=== PATIENT | female | born 1930 | race Caucasian/White ===

== ENCOUNTER 2018-08-01 10:06 | Emergency (ER) | payer BC ==
[2018-08-01 10:27] VITALS: BP 136/66; PULSE 61; TEMP 97.9; BMI 24.3
--- NOTE | 2018-08-01 10:28 | PDOC ---
Attending Attestation - Resident Resident Name: Tata Hayes - ED Attending Attestation I have performed the following: I have examined & evaluated the patient, The case was reviewed & discussed with the resident, I agree w/resident's findings & plan, Exceptions are as noted - HPI HPI: 08/01/18 16:19 Reviewed Residents HPI - Physicial Exam PE: 08/01/18 16:19 Reviewed Residents PE - Medical Decision Making 08/01/18 17:44 Elderly woman presents to the ED with mechanical fall injury to right knee and right ribs with elbow skin tears. Tetanus updated no acute rib fractures noted no pneumothorax or hemothorax noted Patient with extensor mechanism intact right lower extremity suggestive of incomplete patellar fracture Case discussed with orthopedic patient placed in knee immobilizer given crutches will follow up with orthopedics this week. Findings, the need for follow-up and strict return instructions discussed patient.
--- NOTE | 2018-08-01 10:57 | PDOC ---
History of Present Illness - General Chief Complaint: Injury Stated Complaint: FALL Time Seen by Provider: 08/01/18 10:22 History Source: Patient, Family Exam Limitations: No Limitations - History of Present Illness Initial Comments: 08/01/18 10:57 87YOF who p/w right knee, right elbow, and right rib pain since suffering a GLF last night which she describes as mechanical. She recalls she was walking in her living room, which was poorly lit, when she tripped over her dog and landed on her right side on hardwood julianne. She denies hitting her head, hurting her neck, losing consciousness, or being stuck on the ground for any extended period of time (states 5 min). She initially was able to ambulate with heavy dependence on crutches (d/t worsened right knee pain with weight bearing) but has been unable to do so this morning. Past History - Past Medical History Allergies/Adverse Reactions: Allergies Allergy/AdvReac Type Severity Reaction Status Date / Time No Known Allergies Allergy Verified 08/01/18 10:18 Home Medications: Ambulatory Orders Enalapril Maleate [Vasotec -] 2.5 mg PO DAILY 06/29/12 metFORMIN HCL [Glucophage] 1,000 mg PO BID 06/29/12 Aspirin Coated [Ecotrin -] 81 mg PO DAILY 08/22/14 Metoprolol Tartrate [Lopressor -] 12.5 mg PO DAILY 08/22/14 Atorvastatin Ca [Lipitor] 10 mg PO DAILY 08/01/18 Cardiac Disorders: Yes (MVP) Diabetes: Yes (NIDDM) GI Disorders: Yes (DIVERTICULOSIS, GERD, HH) HTN: Yes Hypercholesterolemia: Yes - Surgical History Appendectomy: Yes (46 years old) - Suicide/Smoking/Psychosocial Hx Smoking Status: No Smoking History: Unknown if ever smoked Have you smoked in the past 12 months: No Number of Cigarettes Smoked Daily: 0 Hx Alcohol Use: No Drug/Substance Use Hx: No Substance Use Type: None Review of Systems - Review of Systems Able to Perform ROS?: Yes Comments:: 08/01/18 11:10 GEN: no fever, chills, malaise, generalized weakness, or weight change HEENT: no ear pain, sore throat, vision change, or eye pain CV: no chest pain, palpitations, lightheadedness, syncope, or edema RESP: no cough, wheezing, or SOB GI: no abdominal pain, nausea, vomiting, diarrhea, constipation, or white/black/ bloody stool : no dysuria, hematuria, incontinence, retention, bleeding, or discharge MSK: right elbow skin tear, right knee trauma/pain/swelling, right rib pain NEURO: no headache, seizure, vertigo, numbness, tingling, or focal weakness PSYCH: no substance use, no behavior change SKIN: skin tear, no jaundice, no rash ROS otherwise negative except as noted in HPI *Physical Exam - Vital Signs Initial Vital Signs Temp Pulse Resp BP Pulse Ox 97.9 F 61 16 136/66 98 08/01/18 10:17 08/01/18 10:17 08/01/18 10:17 08/01/18 10:17 08/01/18 10:17 - Physical Exam Comments: 08/01/18 11:04 GENERAL: very pleasant elderly female, in good humor, appears younger than stated age, well-appearing, A/Ox4, no distress, answers questions appropriately , family at bedside is supportive HEENT: no outward signs of facial trauma or basilar skull fxr, PERRLA, EOMI, moist mucous membranes NECK/BACK: no midline ttp, no spinal stepoff or deformity, no hematoma, full ROM , neck supple CARDIOVASCULAR: regular rate/rhythm, normal S1S2, no MGR, strong peripheral pulses, capillary refill <2 seconds, extremities wwp, no edema LUNGS/RESPIRATORY: no respiratory distress, CTAB CHEST WALL: right rib mild ttp from midaxillary line to midclavicular line from about rib 3 to 6, no stepoff or obvious deformity, no overlying hematoma GI/ABDOMEN: symmetric [id number], normoactive BS, soft, no ttp, no midline pulsatile masses : no CVA tenderness EXTREMITIES: right knee large effusion with anterior knee small bony prominence possibly representing bony deformity, also tibia appears posteriorly positioned relative to distal femur, no skin tears, patient is able to extend the knee completely and actively against gravity and also against counter-force although this worsens pain, and flex the knee to about 15 degrees with increased stated pain, DP and PT pulses intact as well as motor/sensory intact distally, patient unable to bear weight in the department. Right elbow with overlying skin tear extending for about 5 cm and not appearing amenable to suturing. SKIN: warm and dry, no pallor, no jaundice, no rash, no bruising, no skin breakdown, no cuts, no lesions NEUROLOGICAL: GCS 15, CN II-XII grossly intact, 5/5 strength proximally and distally, no facial droop Medical Decision Making - Medical Decision Making 08/01/18 11:12 Elderly female patient p/w mechanical GLF with subsequent right knee and right rib pain and right elbow skin tears. Initial Vital Signs Temp Pulse Resp BP Pulse Ox 97.9 F 61 16 136/66 98 08/01/18 10:17 08/01/18 10:17 08/01/18 10:17 08/01/18 10:17 08/01/18 10:17 Exam: As noted in Physical Exam section. DDX for knee injury IBNLT: knee fxr/dislocation, ligamentous injury (tear vs rupture), sprain/strain, contusion, unlikely any of the following: hip/pelvis/ femur fxr, hip dislocation, thigh hematoma, compartment syndrome, etc. DDX for rib pain IBNLT: rib fracture, rib contusion, costochondritis, unlikely to be PTX, pulmonary contusion, or other more serious pathology. W/U ordered: XR hip/pelvis/femur/knee CBCD CMP Cardiac Panel Coags T&S UA UCx EKG CXR TX ordered: Boostrix NPO until further notice. The patient is a/o x4, appears very healthy for her age, denies hitting her head or losing consciousness, denies neck pain or headache, denies n/v, denies dizziness/lightheadedness, no outward e/o facial trauma. She is appropriate for observation as opposed to CT imaging. XR Rt Knee: shows patellar fxr, no dislocation or additional bony abnormality. XR right ribs: no obvious fxr. CXR: No PTX or other acute abnormality Reassessment: Patient states she feels well, wants to go home. On re-assessment she remains able to actively extend at the right knee against gravity. Distal neurovascularly intact. Patient is given a knee immobilizer and crutches. Splint check shows maintained NV intact. I have spoken with Dr. Lara' office and the patient has followup scheduled with them. DISCHARGE The Pt has gotten significant relief of symptoms while in the ED. They are appropriate for discharge with close outpatient follow up. The Pt is comfortable with this plan and will follow up with their primary care provider in 1-3 days. Specific return precautions are discussed and they will come back to the ER if necessary. *DC/Admit/Observation/Transfer Diagnosis at time of Disposition: Patella fracture Qualifiers: Encounter type: initial encounter Fracture type: closed Fracture morphology: unspecified fracture morphology Fracture alignment: nondisplaced Laterality: right Qualified Code(s): S82.001A - Unspecified fracture of right patella, initial encounter for closed fracture Skin tear of elbow without complication Qualifiers: Encounter type: initial encounter Laterality: right Qualified Code(s): S51.011A - Laceration without foreign body of right elbow, initial encounter - Discharge Dispostion Disposition: HOME Condition at time of disposition: Good Decision to Admit order: No - Referrals Referrals: Sena Owens MD [Primary Care Provider] - Tesfaye Lara MD [Staff Physician] - - Patient Instructions Additional Instructions: You were seen in the ER for knee pain after a fall, and you have a patella fracture. Please go to the orthopedist's office today at 2:[address] name is [address]. Lara and his address is listed in this paperwork. Wear the knee immobilizer and use crutches in the meantime. If you have any new or worsening symptoms, please come back to the ER at any time (24 hours a day). If you are having severe or life threatening symptoms, or symptoms that make it unsafe to drive or have someone drive you, please call 911. - Post Discharge Activity
[2018-08-01] MEDS ORDERED: TETANUS AND DIPHTHERIA TOXOID 0.5 ML DISP.SYRIN IM ONE (11:01)
[2018-08-01] MEDS ORDERED: DIPHTH,PERTUSS(ACELL),TET 0.5 ML DISP.SYRIN IM ONE ×2 (11:06→11:07)
== END 2018-08-01 13:27 | disposition home or self-care (01) ==
LOC: FER 10:06
PROC: 2W3CX1Z Immobilization of Right Lower Arm using Splint (ICD-10-PCS; principal; 2018-08-01)
PROC: 3E0234Z Introduction of Serum, Toxoid and Vaccine into Muscle, Percutaneous Approach (ICD-10-PCS; 2018-08-01)
DX: S82.001A Unspecified fracture of right patella, initial encounter for closed fracture (principal); S51.011A Laceration without foreign body of right elbow, initial encounter; W01.0XXA Fall on same level from slipping, tripping and stumbling without subsequent striking against object, initial encounter; Y93.89 Activity, other specified; Y92.009 Unspecified place in unspecified non-institutional (private) residence as the place of occurrence of the external cause; I34.1 Nonrheumatic mitral (valve) prolapse; E11.9 Type 2 diabetes mellitus without complications; K21.9 Gastro-esophageal reflux disease without esophagitis; I10 Essential (primary) hypertension; E78.5 Hyperlipidemia, unspecified
CPT/HCPCS: 29125; 71045-TC-FY; 71101-TC-RT-FY; 73562-TC-RT-FY; 90471; 90715; 99282-25

== ENCOUNTER 2019-10-26 14:27 | Inpatient (IN) | payer BC, OTHER ==
[2019-10-26 15:20] LABS: BASO % 0.3 % (0-2.0); EOS % 2.3 % (0-4.5); HEMATOCRIT 35.4 % (32.4-45.2); HEMOGLOBIN 11.6 GM/dl (10.7-15.3); LYMPH % 24.9 % (8-40); MCHC 32.7 g/dl (32.0-36.0); MEAN CELL VOLUME 91.6 fl (80-96); MEAN PLT VOLUME 9.1 fl (7.5-11.1); MONO % 6.1 % (3.8-10.2); NEUT % 66.4 % (42.8-82.8); PLATELET COUNT 340 K/MM3 (134-434); RBC 3.86 M/mm3 (3.60-5.2); RDW 11.9 % (11.6-15.6); WHITE BLOOD COUNT 11.6 K/mm3 (4.0-10.8)
[2019-10-26 15:27] LABS: ACTIVATED PTT 35.9 SECONDS (25.2-36.5)
[2019-10-26 15:32] LABS: INR 1.17 (0.82-1.09); PROTHROMBIN TIME (PATIENT) 13.1 SEC (10.2-13.0)
[2019-10-26 15:43] LABS: ALBUMIN 3.9 g/dl (3.4-5.0); BILIRUBIN,TOTAL 0.6 mg/dl (0.2-1); CALCIUM 9.5 mg/dl (8.5-10); CREATININE 0.7 mg/dl (0.55-1.3); MAGNESIUM 1.6 mg/dL (1.8-2.4); POTASSIUM 4.9 mmol/L (3.5-5.1); TOT PROT 6.8 g/dl (6.4-8.2)
--- NOTE | 2019-10-26 17:45 | PDOC ---
Documentation entered by Anu Felipe SCRIBE, acting as scribe for Tata Hayes MD. Tata Hayes MD: This documentation has been prepared by the Destinee drew Brenda, SCRIBE, under my direction and personally reviewed by me in its entirety. I confirm that the documentation accurately reflects all work, treatment, procedures, and medical decision making performed by me. History of Present Illness - General Chief Complaint: Pain, Acute Stated Complaint: fell and injured right buttock &hip pain History Source: Patient Exam Limitations: No Limitations - History of Present Illness Initial Comments: 10/26/19 14:35 The patient is an 88 year old female with a significant PMH of DM, HTN and HLD who presents to the ED for evaluation left hip pain s/p mechanical fall. Per p atient she was walking her dog, at which time, her dog began running while chasing after something. Patient notes that she was not able to keep up, letting go of the dog's leash and tripping and falling on mud. Patient is endorsing left hip pain and an inability to ambulate since. The patient denies any preceding symptoms. Denies head trauma or LOC. The patient denies chest pain, shortness of breath, headache and dizziness. Denies fever, chills, nausea, vomiting, diarrhea and constipation. Denies any other symptoms. Allergies: NKA Social history: No reported hx of tobacco use, alcohol use or illicit drug use. Past History - Medical History Allergies/Adverse Reactions: Allergies Allergy/AdvReac Type Severity Reaction Status Date / Time No Known Allergies Allergy Verified 10/26/19 14:34 Home Medications: Ambulatory Orders Enalapril Maleate [Vasotec -] 2.5 mg PO DAILY 06/29/12 metFORMIN HCL [Glucophage] 1,000 mg PO BID 06/29/12 Aspirin Coated [Ecotrin -] 81 mg PO Q2D 08/22/14 Metoprolol Tartrate [Lopressor -] 12.5 mg PO DAILY 08/22/14 Atorvastatin Ca [Lipitor] 10 mg PO DAILY 08/01/18 Acetaminophen [Tylenol .Extra-Strength -] 1,000 mg PO Q6H PRN tablet 10/31/19 Enoxaparin [Lovenox -] 40 mg SQ DAILY disp.syrin 10/31/19 Insulin Sliding Scale [Novolog Vial Sliding Scale -] 1 vial SQ BIDAC units 10/31/19 Nystatin Powder [Nystop Powder -] 1 applic TP BID applic 10/31/19 Polyethylene Glycol 3350 [Miralax 119 gm Btl -] 17 gm PO BID bottle 10/31/19 Sennosides [Senna -] 2 tab PO HS PRN tablet 10/31/19 traMADol HCL [Ultram -] 50 mg PO Q6H PRN tablet 10/31/19 Cardiac Disorders: Yes (MVP) COPD: No Diabetes: Yes (NIDDM) GI Disorders: Yes (DIVERTICULOSIS, GERD, HH) HTN: Yes Hypercholesterolemia: Yes - Surgical History Appendectomy: Yes (46 years old) - Reproductive History Is Patient Now?: No - Psycho-Social/Smoking History Smoking Status: No Smoking History: Never smoked Have you smoked in the past 12 months: No Number of Cigarettes Smoked Daily: 0 Information on smoking cessation initiated: No - Substance Abuse Hx (Audit-C & DAST Scrn) How often the patient has a drink containing alcohol: Never Score: In Men: 4 or > Positive; In Women: 3 or > Positive: 0 Screen Result (Pos requires Nsg. Audit-10AR): Negative In the last yr the pt used illegal drug/Rx for NonMed reason: No Score: Yes response is considered Positive: 0 Screen Result (Positive result requires Nsg. DAST-10): Negative Review of Systems - Review of Systems Able to Perform ROS?: Yes Comments:: 10/26/19 14:42 GEN: no fever, chills, night sweats, generalized weakness, malaise, or unintentional weight change HEENT: no ear pain, congestion, sore throat, vision change, or eye pain CV: no chest pain, palpitations, lightheadedness, syncope, or edema RESP: no cough, wheezing, or SOB GI: no abdominal pain, nausea, vomiting, diarrhea, constipation, or white/black/bloody stool : no dysuria, hematuria, frequency, incontinence, retention, or discharge MSK: (+) Left hip pain. no muscle weakness.no joint swelling. NEURO: no headache, seizure, vertigo, imbalance, numbness, tingling, focal weakness, or difficulty walking/talking PSYCH: no insomnia, behavior change, SI, HI, or substance use SKIN: no prurtitis, excessive dryness, jaundice, rash, cuts, or unexplained bruises ROS otherwise negative except as noted in HPI *Physical Exam - Vital Signs Last Vital Signs Temp Pulse Resp BP Pulse Ox 98.1 F 56 L 18 158/54 L 100 10/26/19 14:29 10/26/19 14:29 10/26/19 14:29 10/26/19 14:29 10/26/19 14:29 - Physical Exam 10/26/19 14:43 GENERAL: elderly, nontoxic-appearing, very pleasant, no distress, answers questions appropriately. HEENT: PERRLA, EOMI, moist mucous membranes NECK/BACK: no midline ttp, no spinal stepoff or deformity, no hematoma, full ROM, neck supple CARDIOVASCULAR: regular rate/rhythm, no MGR, strong peripheral pulses, capillary refill <2 seconds, extremities wwp, no edema LUNGS/RESPIRATORY: no respiratory distress, CTAB GI/ABDOMEN: symmetric [id number], normoactive BS, soft, no ttp, no midline pulsatile masses : no CVA tenderness MSK/EXTREMITIES: (+) Tenderness on left hip overlying greater trochanter. (+) lengthened right lower extremity by 1cm-2cm. No rotations. no acute-appearing muscle atrophy. DERM/SKIN: warm and dry, no pallor, no jaundice, no rash, no pathologic- appearing bruising, no skin breakdown, no cuts, no lesions NEUROLOGICAL: GCS 15, CN II-XII grossly intact, 5/5 strength proximally and distally, no facial droop Heart Score/ECG Review #1 10/26/19 14:35 Sinus bradycardia, rate 57, normal axis and intervals, no ischemic ST-T changes ED Treatment Course - LABORATORY CBC & Chemistry Diagram: 10/31/19 07:19 10/31/19 07:19 Medical Decision Making - Medical Decision Making 88YOF p/w mechanical fall now with right hip pain from lateral aspect to medial groin on right. Initial Vital Signs Temp Pulse Resp BP Pulse Ox 98.1 F 56 L 18 158/54 L 100 10/26/19 14:29 10/26/19 14:29 10/26/19 14:29 10/26/19 14:29 10/26/19 14:29 Most likely hip/pelvis fracture, less likely dislocation or combination of the two. Less likely simple strain/sprain/soft tissue injury given persistent pain and radiation to the groin. Possible femur or knee fxr although this is less likely. Will get CXR as well as hip/pelvis/knee imaging. Patient stable, does not want medications for pain. Provider Orders Category Date Time Status Decision to Admit to Hospital Routine Admission 10/26/19 17:35 Active TYPE AND SCREEN Stat Blood Bank 10/26/19 15:05 Completed EKG [ELECTROCARDIOGRAM] [CARD] Stat Cardiology 10/26/19 14:47 Ordered EKG needed NOW Care 10/26/19 14:47 Completed Consult [Physician Consultation] Physician 1 Cons 10/26/19 15:42 Ordered ACTIVATED PTT Stat Lab 10/26/19 14:55 Completed CBC WITH DIFFERENTIAL Stat Lab 10/26/19 15:05 Completed COMP METABOLIC PANEL Stat Lab 10/26/19 14:55 Completed MAGNESIUM Stat Lab 10/26/19 14:55 Completed PT/INR (PROTHROMBIN TIME) Stat Lab 10/26/19 14:55 Completed CHEST - PA [RAD] Stat Radiology 10/26/19 14:47 Completed HIP & PELVIS-LEFT [RAD] Stat Radiology 10/26/19 14:46 Completed HIP & PELVIS-RIGHT [RAD] Stat Radiology 10/26/19 14:45 Completed KNEE 2 POS-RIGHT [RAD] Stat Radiology 10/26/19 14:45 Completed Reminder: new phy cons See Order Reminders 10/26/19 15:43 Ordered Lab Results WBC 11.6 K/mm3 (4.0-10.8) H 10/26/19 15:05 RBC 3.86 M/mm3 (3.60-5.2) 10/26/19 15:05 Hgb 11.6 GM/dl (10.7-15.3) 10/26/19 15:05 Hct 35.4 % (32.4-45.2) 10/26/19 15:05 MCV 91.6 fl (80-96) 10/26/19 15:05 MCH 30.0 pg (25.7-33.7) 10/26/19 15:05 MCHC 32.7 g/dl (32.0-36.0) 10/26/19 15:05 RDW 11.9 % (11.6-15.6) 10/26/19 15:05 Plt Count 340 K/MM3 (134-434) 10/26/19 15:05 MPV 9.1 fl (7.5-11.1) 10/26/19 15:05 Absolute Neuts (auto) 7.7 K/mm3 10/26/19 15:05 Neutrophils % 66.4 % (42.8-82.8) 10/26/19 15:05 Lymphocytes % 24.9 % (8-40) 10/26/19 15:05 Monocytes % 6.1 % (3.8-10.2) 10/26/19 15:05 Eosinophils % 2.3 % (0-4.5) 10/26/19 15:05 Basophils % 0.3 % (0-2.0) 10/26/19 15:05 PT with INR 13.1 SEC (10.2-13.0) H 10/26/19 14:55 INR 1.17 (0.82-1.09) 10/26/19 14:55 PTT (Actin FS) 35.9 SECONDS (25.2-36.5) 10/26/19 14:55 Sodium 139 mmol/L (136-145) 10/26/19 14:55 Potassium 4.9 mmol/L (3.5-5.1) 10/26/19 14:55 Chloride 100 mmol/L (98-107) 10/26/19 14:55 Carbon Dioxide 28 mmol/L (21-32) 10/26/19 14:55 Anion Gap 11 MMOL/L (8-16) 10/26/19 14:55 BUN 23.0 mg/dl (7-18) H 10/26/19 14:55 Creatinine 0.7 mg/dl (0.55-1.3) 10/26/19 14:55 Est GFR (CKD-EPI)AfAm 90.93 10/26/19 14:55 Est GFR (CKD-EPI)NonAf 78.45 10/26/19 14:55 Random Glucose 147 mg/dl (74-106) H 10/26/19 14:55 Calcium 9.5 mg/dl (8.5-10) 10/26/19 14:55 Magnesium 1.6 mg/dL (1.8-2.4) L 10/26/19 14:55 Total Bilirubin 0.6 mg/dl (0.2-1) 10/26/19 14:55 AST 18 U/L (15-37) 10/26/19 14:55 ALT 17 U/L (13-61) 10/26/19 14:55 Alkaline Phosphatase 95 U/L (45-117) 10/26/19 14:55 Total Protein 6.8 g/dl (6.4-8.2) 10/26/19 14:55 Albumin 3.9 g/dl (3.4-5.0) 10/26/19 14:55 Blood Type A POSITIVE 10/26/19 15:05 Antibody Screen Negative 10/26/19 15:05 RAD/CHEST - PA Chest: Fall Single view of the chest reveals a weak inspiration with clear lungs, sharp angles, sclerotic aorta, normal martinez and normal heart. There are degenerative changes. An acute fracture or pneumothorax is not seen. Correlation recommended RAD/HIP PELVIS-LEFT Pelvis and left hip: Pain. Fall. An AP view of the pelvis and 2 views of the left hip is submitted. The hips appear symmetrical with no sign of an acute fracture. Blastic or lytic changes are not seen. The SI joints are patent. There are fractures of the right superior and inferior pubic rami. The left pubic rami appear intact. There are vascular calcifications and a large amount of retained stool compatible with constipation. There is a scoliosis. Impression: Intact hips. Right superior and inferior pubic rami fractures. Correlation recommended. RAD/HIP PELVIS-RIGHT Right hip: Pain. 2 views of the right hip reveal fractures of the right superior and inferior pubic rami, intact right hip with some arthritic changes and patent SI joint. The entire pelvis is not visualized. Correlation recommended. RAD/KNEE 2 POS-RIGHT Right knee: Fall. Pain. 2 views of the right knee reveal arthritic changes, soft tissue calcification, vascular calcifications but no sign of fracture or subluxation and no sign of blastic or lytic findings. A previous patellar fracture was noted on 08/01/2018. This appears healed with a deformity along with an anterior opaque density is seen by the superior aspect of the patella. This was present before and could be a foreign body. Relation recommended Impression: No acute pathology appreciated. See discussion above. I have spoken with Jamarcus RITTER with Dr. Page's group, consult order placed to Dr. Page. 10/26/19 17:[address] Daniels, hospitalist team. I have spoken with Dr. Lake and given passdown - case will be passed down to hospitalist night team. Discharge - Discharge Information Problems reviewed: Yes Clinical Impression/Diagnosis: Fall from ground level Fracture of superior pubic ramus Qualifiers: Encounter type: initial encounter Fracture type: closed Laterality: right Qualified Code(s): S32.511A - Fracture of superior rim of right pubis, initial encounter for closed fracture Fracture of inferior pubic ramus Qualifiers: Encounter type: initial encounter Fracture type: closed Laterality: right Qualified Code(s): S32.591A - Other specified fracture of right pubis, initial encounter for closed fracture Condition: Guarded - Admission Yes - Follow up/Referral - Patient Discharge Instructions - Post Discharge Activity
[2019-10-26 18:50] LABS: EPITHELIAL CELLS FEW /hpf
[2019-10-26 20:59] VITALS: BMI 26.9
--- NOTE | 2019-10-26 23:26 | HP ---
CHIEF COMPLAINT: right hip pain PCP: HISTORY OF PRESENT ILLNESS: 88 year old female with a significant past medical history of diabetes mellitus(on metformin), hypertension and hyperlipidemia who presents to the ED for evaluation right hip pain s/p mechanical fall. She states she was walking her dog and her dog began running while chasing after something. Patient notes that she was not able to keep up, letting go of the dog's leash and tripping and falling on mud. Patient is endorsing right hip pain and an inability to ambulate. She denied any preceding symptoms. She denied head trauma or loss of consciousness. She denied chest pain, shortness of breath, headache, dizziness, fever, chills, nausea, vomiting, diarrhea and constipation. ER course was notable for: WBC for 11,600. UA with trace leukoesterase, WBC 5-10 and 1+ blood X ray demonstrating posterior and inferior rami pelvic fracture Recent Travel: no PAST MEDICAL HISTORY: diabetes mellitus hypertension hyperlipidemia PAST SURGICAL HISTORY: none Social History: Smoking:no Alcohol:no Drugs: no Family History noncontributory Allergies No Known Allergies Allergy (Verified 10/26/19 14:34) HOME MEDICATIONS: Home Medications Medication Instructions Recorded Enalapril Maleate [Vasotec -] 2.5 mg PO DAILY 06/29/12 metFORMIN HCL [Glucophage] 1,000 mg PO BID 06/29/12 Aspirin Coated [Ecotrin -] 81 mg PO Q2D 08/22/14 Metoprolol Tartrate [Lopressor -] 12.5 mg PO DAILY 08/22/14 Atorvastatin Ca [Lipitor] 10 mg PO DAILY 08/01/18 REVIEW OF SYSTEMS CONSTITUTIONAL: Absent: fever, chills, diaphoresis, generalized weakness, malaise, loss of appetite, weight change HEENT: Absent: rhinorrhea, nasal congestion, throat pain, throat swelling, difficulty swallowing, mouth swelling, ear pain, eye pain, visual changes CARDIOVASCULAR: Absent: chest pain, syncope, palpitations, irregular heart rate, lightheadedness, peripheral edema RESPIRATORY: Absent: cough, shortness of breath, dyspnea with exertion, orthopnea, wheezing, stridor, hemoptysis GASTROINTESTINAL: Absent: abdominal pain, abdominal distension, nausea, vomiting, diarrhea, constipation, melena, hematochezia GENITOURINARY: Absent: dysuria, frequency, urgency, hesitancy, hematuria, flank pain, genital pain MUSCULOSKELETAL: Absent: myalgia, arthralgia, joint swelling, back pain, neck pain, right hip pain SKIN: Absent: rash, itching, pallor HEMATOLOGIC/IMMUNOLOGIC: Absent: easy bleeding, easy bruising, lymphadenopathy, frequent infections ENDOCRINE: Absent: unexplained weight gain, unexplained weight loss, heat intolerance, cold intolerance NEUROLOGIC: Absent: headache, focal weakness or paresthesias, dizziness, unsteady gait, seizure, mental status changes, bladder or bowel incontinence PSYCHIATRIC: Absent: anxiety, depression, suicidal or homicidal ideation, hallucinations. PHYSICAL EXAMINATION Vital Signs - 24 hr 10/26/19 10/26/19 10/26/19 14:29 16:16 20:05 Temperature 98.1 F 98.4 F 98.5 F Pulse Rate 56 L 77 Pulse Rate [ 67 Left] Respiratory 18 18 18 Rate Blood Pressure 158/54 L 136/51 L Blood Pressure 158/66 [Left Arm] O2 Sat by Pulse 100 98 Oximetry (%) 10/26/19 10/26/19 10/26/19 20:43 21:00 22:04 Temperature 98.8 F Pulse Rate 72 Pulse Rate [ Left] Respiratory 18 18 Rate Blood Pressure 140/55 L Blood Pressure [Left Arm] O2 Sat by Pulse 98 98 98 Oximetry (%) Laboratory Results - last 24 hr 10/26/19 10/26/19 10/26/19 14:55 14:55 15:05 WBC 11.6 H RBC 3.86 Hgb 11.6 Hct 35.4 MCV 91.6 MCH 30.0 MCHC 32.7 RDW 11.9 Plt Count 340 MPV 9.1 Absolute Neuts (auto) 7.7 Neutrophils % 66.4 Lymphocytes % 24.9 Monocytes % 6.1 Eosinophils % 2.3 Basophils % 0.3 PT with INR 13.1 H INR 1.17 PTT (Actin FS) 35.9 Sodium 139 Potassium 4.9 Chloride 100 Carbon Dioxide 28 Anion Gap 11 BUN 23.0 H Creatinine 0.7 Est GFR (CKD-EPI)AfAm 90.93 Est GFR (CKD-EPI)NonAf 78.45 Random Glucose 147 H Calcium 9.5 Magnesium 1.6 L Total Bilirubin 0.6 AST 18 ALT 17 Alkaline Phosphatase 95 Total Protein 6.8 Albumin 3.9 Urine Color Urine Appearance Urine pH Urine Protein Urine Glucose (UA) Urine Ketones Urine Blood Urine Nitrite Urine Bilirubin Urine Urobilinogen Ur Leukocyte Esterase Urine RBC Urine WBC Ur Transition Epith Cell Urine Bacteria Blood Type Antibody Screen 10/26/19 10/26/19 15:05 18:30 WBC RBC Hgb Hct MCV MCH MCHC RDW Plt Count MPV Absolute Neuts (auto) Neutrophils % Lymphocytes % Monocytes % Eosinophils % Basophils % PT with INR INR PTT (Actin FS) Sodium Potassium Chloride Carbon Dioxide Anion Gap BUN Creatinine Est GFR (CKD-EPI)AfAm Est GFR (CKD-EPI)NonAf Random Glucose Calcium Magnesium Total Bilirubin AST ALT Alkaline Phosphatase Total Protein Albumin Urine Color Yellow Urine Appearance Slightly Urine pH 5.5 Urine Protein Negative Urine Glucose (UA) Negative Urine Ketones Negative Urine Blood 1+ H Urine Nitrite Negative Urine Bilirubin Negative Urine Urobilinogen 0.2 Ur Leukocyte Esterase Trace H Urine RBC 10-20 Urine WBC 5-10 Ur Transition Epith Cell Few Urine Bacteria Few Blood Type A POSITIVE Antibody Screen Negative ASSESSMENT/PLAN: 88 year old female with a significant past medical history of diabetes mellitus, hypertension and hyperlipidemia who presented for evaluation right hip pain s/p mechanical fall. She was found to have a right pelvic fracture. She is being admitted to the Medicine Team for pain management and Orthopedic evaluation. #1 Right Pelvic Fracture S/P Fall symptomatic c/w pain control with IV Ofirmev 1000mg q6hr prn Orthopedics- Dr. Page consulted #2 Diabetes Mellitus hold metformin BGM before meals and at bedtime insulin as per sliding scale #3 Hypertension SBP 130-150 c/w metoprolol tartrate 12.5 daily and vasotec 2.5 mg daily #4 Hyperlipidemia LFT's normal c/w statin therapy #5 ? UTI asymptomatic mild leukocytosis which may be reactive to fall/fracture UA with WBC 5-10, trace leukoesterase and 1+ blood pending urine culture will hold on IV antibiotics and will await for urine culture #6 Rule out COVID follow up on COVID test (sent 10/25) maintain strict isolation/contact precautions #& Hypomagnesia magnesium 1.6, repleted repeat mag level in am DVT Prophylaxis lovenox 40 mg daily FEN no IVF indicated BMP daily, replete electrolytes as needed ADA, low sodium, low fat diet Family Medical History Family History: Unremarkable Visit type - Medication Review Med list reviewed for High Risk Meds patients 65 and older: Yes - Emergency Visit Emergency Visit: Yes ED Registration Date: 10/26/19 Care time: The patient presented to the Emergency Department on the above date and was hospitalized for further evaluation of their emergent condition. - New Patient This patient is new to me today: Yes Date on this admission: 10/27/19 - Critical Care Critical Care patient: No
[2019-10-27] MEDS ORDERED: MAGNESIUM OXIDE 400 MG TABLET (FP) PO ONE
[2019-10-27] MEDS: INSULIN SLIDING SCALE (NOVOLOG) 1 VIAL SQ SCH ×2 (06:26→16:49)
--- NOTE | 2019-10-27 08:16 | CON.ORTH ---
Consult Reason for Consultation:: right pelvic fx - Past Medical History Cardio/Vascular: Yes: HTN, Hyperlipdemia ...: No Endocrine: Yes: Diabetes Mellitus - Alcohol/Substance Use Hx Alcohol Use: No - Smoking History Smoking history: Never smoked Have you smoked in the past 12 months: No Aproximately how many cigarettes per day: 0 Home Medications - Allergies Allergies/Adverse Reactions: Allergies Allergy/AdvReac Type Severity Reaction Status Date / Time No Known Allergies Allergy Verified 10/26/19 14:34 - Home Medications Home Medications: Ambulatory Orders Enalapril Maleate [Vasotec -] 2.5 mg PO DAILY 06/29/12 metFORMIN HCL [Glucophage] 1,000 mg PO BID 06/29/12 Aspirin Coated [Ecotrin -] 81 mg PO Q2D 08/22/14 Metoprolol Tartrate [Lopressor -] 12.5 mg PO DAILY 08/22/14 Atorvastatin Ca [Lipitor] 10 mg PO DAILY 08/01/18 Physical Exam for Ortho Vital Signs: Vital Signs Temperature 99.0 F 10/27/19 06:40 Pulse Rate 76 10/27/19 06:40 Respiratory Rate 18 10/27/19 06:40 Blood Pressure 131/55 L 10/27/19 06:40 O2 Sat by Pulse Oximetry (%) 95 10/27/19 06:40 Labs: INR, PTT INR 1.17 (0.82-1.09) 10/26/19 14:55 - Lower Extremity Hip: Yes: Right, Decreased ROM, Pain, Swelling, Other (equal limb lengths, nvi) Imaging - Results X-ray: Report Reviewed, Image Reviewed Assessment/Plan 88 year old female with a significant past medical history of diabetes mellitus(on metformin), hypertension and hyperlipidemia who presents to the ED for evaluation right hip pain s/p mechanical fall. She states she was walking her dog and her dog began running while chasing after something. Patient notes that she was not able to keep up, letting go of the dog's leash and tripping and falling on mud. Patient is endorsing right hip pain and an inability to ambu late. She denied any preceding symptoms. She denied head trauma or loss of consciousness. She denied chest pain, shortness of breath, headache, dizziness, fever, chills, nausea, vomiting, diarrhea and constipation. a/p right superior and inferior pubic rami fx No surgical intervention PT eval wbat pain control d/c planning d/w Dr. Page
[2019-10-27 08:22] LABS: CREATININE 0.6 mg/dl (0.55-1.3); MAGNESIUM 1.5 mg/dL (1.8-2.4)
[2019-10-27 08:24] LABS: HEMATOCRIT 32.3 % (32.4-45.2); HEMOGLOBIN 10.8 GM/dl (10.7-15.3); MCH 30.5 pg (25.7-33.7); MCHC 33.5 g/dl (32.0-36.0); MEAN CELL VOLUME 91.3 fl (80-96); MEAN PLT VOLUME 8.8 fl (7.5-11.1); PLATELET COUNT 277 K/MM3 (134-434); RBC 3.54 M/mm3 (3.60-5.2); RDW 11.7 % (11.6-15.6); WHITE BLOOD COUNT 11.1 K/mm3 (4.0-10.8)
[2019-10-27] MEDS: METOPROLOL TARTRATE 25 MG TABLET (FP) PO SCH (09:38)
[2019-10-27] MEDS: ENALAPRIL MALEATE 2.5 MG TABLET (FP) PO SCH (09:38)
[2019-10-27] MEDS: ACETAMINOPHEN 1000 MG/100 ML VIAL (NON FORMULARY) IVPB PRN ×2 (13:53→21:13)
--- NOTE | 2019-10-27 15:46 | EKG ---
Test Reason : Blood Pressure : / mmHG Vent. Rate : 057 BPM Atrial Rate : 057 BPM P-R Int : 172 ms QRS Dur : 084 ms QT Int : 404 ms P-R-T Axes : 047 011 047 degrees QTc Int : 393 ms SINUS BRADYCARDIA OTHERWISE NORMAL ECG WHEN COMPARED WITH ECG OF 02-MAR-2016 08:59, NO SIGNIFICANT CHANGE WAS FOUND Confirmed by JIMBO CARROLL MD ([id number]) on 10/27/2019 3:46:15 PM Referred By: SCAR SERRATO Confirmed By:JIMBO CARROLL MD
--- NOTE | 2019-10-27 16:26 | PN ---
Progress Note, Physician History of Present Illness: RIGHT HIP PAIN - Current Medication List Current Medications: Active Medications Acetaminophen (Ofirmev Injection -) 1,000 mg IVPB Q6H PRN PRN Reason: PAIN LEVEL 7 - 10 Stop: 10/27/19 22:05 Last Admin: 10/27/19 13:53 Dose: 1,000 mg Documented by: Aspirin (Ecotrin -) 81 mg PO Q2D [facility] Atorvastatin Calcium (Lipitor -) 10 mg PO HS [facility] Enalapril Maleate (Vasotec -) 2.5 mg PO DAILY [facility] Last Admin: 10/27/19 09:38 Dose: 2.5 mg Documented by: Enoxaparin Sodium (Lovenox -) 40 mg SQ DAILY [facility] Insulin Aspart (Novolog Vial Sliding Scale -) [facility]; Protocol Last Admin: 10/27/19 06:26 Dose: Not Given Documented by: Magnesium Sulfate (Magnesium Sulfate) 2 gm IVPB ONCE ONE Stop: 10/27/19 16:21 Metoprolol Tartrate (Lopressor -) 12.5 mg PO DAILY [facility] Last Admin: 10/27/19 09:38 Dose: 12.5 mg Documented by: Polyethylene Glycol (Miralax (For Daily Use) -) 17 gm PO BID [facility] Tramadol HCl (Ultram -) 50 mg PO Q6H PRN PRN Reason: PAIN LEVEL 6-10 - Objective Vital Signs: Vital Signs Temperature 98.5 F 10/27/19 14:07 Pulse Rate 79 10/27/19 14:07 Respiratory Rate 19 10/27/19 14:07 Blood Pressure 125/49 L 10/27/19 14:07 O2 Sat by Pulse Oximetry (%) 95 10/27/19 14:07 Cardiovascular: Yes: Regular Rate and Rhythm Respiratory: Yes: Regular, CTA Bilaterally Gastrointestinal: Yes: Normal Bowel Sounds, Soft. No: Tenderness Extremities: Yes: Other (PAIN ON MOVEMENT) Edema: No Neurological: Yes: Alert, Oriented Labs: CBC, BMP 10/27/19 07:12 10/27/19 07:12 INR, PTT INR 1.17 (0.82-1.09) 10/26/19 14:55 Problem List - Problems (1) Fracture of superior pubic ramus Assessment/Plan: c/w pain control with IV Ofirmev 1000mg q6hr prn ADD TRAMADOL Orthopedics- Dr. Page consult noted--no surgery Code(s): S32.519A - FRACTURE OF SUPERIOR RIM OF UNSP PUBIS, INIT FOR CLOS FX Qualifiers: Encounter type: initial encounter Fracture type: closed Laterality: right Qualified Code(s): S32.511A - Fracture of superior rim of right pubis, initial encounter for closed fracture (2) HTN (hypertension) Assessment/Plan: same meds Code(s): I10 - ESSENTIAL (PRIMARY) HYPERTENSION (3) Constipation Assessment/Plan: miralax Code(s): K59.00 - CONSTIPATION, UNSPECIFIED (4) Diabetes Assessment/Plan: bgm Code(s): E11.9 - TYPE 2 DIABETES MELLITUS WITHOUT COMPLICATIONS Qualifiers: Diabetes mellitus type: type 2 Diabetes mellitus predatory animal exterminator insulin use: without [facility] use Diabetes mellitus complication status: with unspecified complications
[2019-10-27] MEDS: ENOXAPARIN NA (PORCINE) 40 MG/0.4 ML DISP.SYRIN SQ SCH (16:45)
[2019-10-27] MEDS ORDERED: MAGNESIUM 2GM/50ML STERILE WATER IVPB IVPB ONE (16:45)
[2019-10-27] MEDS: POLYETHYLENE GLYCOL 3350 119 GM BTL PO SCH (21:12)
[2019-10-27] MEDS: ATORVASTATIN CA 10 MG TABLET (FP) PO SCH (21:12)
[2019-10-28] MEDS: INSULIN SLIDING SCALE (NOVOLOG) 1 VIAL SQ SCH ×2 (06:47→16:54)
[2019-10-28 09:28] LABS: ALBUMIN 3.5 g/dl (3.4-5.0); BILIRUBIN,TOTAL 0.8 mg/dl (0.2-1); CALCIUM 9.2 mg/dl (8.5-10); CREATININE 0.7 mg/dl (0.55-1.3); HEMATOCRIT 34.1 % (32.4-45.2); LYMPH % 18.2 % (8-40); MAGNESIUM 1.9 mg/dL (1.8-2.4); MCH 29.9 pg (25.7-33.7); MCHC 32.1 g/dl (32.0-36.0); MEAN CELL VOLUME 92.8 fl (80-96); MEAN PLT VOLUME 9.1 fl (7.5-11.1); MONO % 6.6 % (3.8-10.2); NEUT % 72.9 % (42.8-82.8); PLATELET COUNT 286 K/MM3 (134-434); POTASSIUM 4.7 mmol/L (3.5-5.1); RBC 3.68 M/mm3 (3.60-5.2); RDW 11.9 % (11.6-15.6); TOT PROT 6.6 g/dl (6.4-8.2); WHITE BLOOD COUNT 12.7 K/mm3 (4.0-10.8)
[2019-10-28] MEDS: ASPIRIN COATED 81 MG TABLET.EC PO SCH (10:06)
[2019-10-28] MEDS: METOPROLOL TARTRATE 25 MG TABLET (FP) PO SCH (10:06)
[2019-10-28] MEDS: traMADol HCL 50 MG TABLET PO PRN (10:06)
[2019-10-28] MEDS: ENOXAPARIN NA (PORCINE) 40 MG/0.4 ML DISP.SYRIN SQ SCH (10:06)
[2019-10-28] MEDS: POLYETHYLENE GLYCOL 3350 119 GM BTL PO SCH ×2 (10:08→21:31)
[2019-10-28] MEDS: ENALAPRIL MALEATE 2.5 MG TABLET (FP) PO SCH (10:08)
--- NOTE | 2019-10-28 17:28 | PN ---
Progress Note, Physician Chief Complaint: Fall Right superior and inferior pubic rami fx History of Present Illness: NAD Did poorly with PT Seen by orthopedic surgery - Current Medication List Current Medications: Active Medications Aspirin (Ecotrin -) 81 mg PO Q2D [facility] Last Admin: 10/28/19 10:06 Dose: 81 mg Documented by: Atorvastatin Calcium (Lipitor -) 10 mg PO HS [facility] Last Admin: 10/27/19 21:12 Dose: 10 mg Documented by: Enalapril Maleate (Vasotec -) 2.5 mg PO DAILY [facility] Last Admin: 10/28/19 10:08 Dose: 2.5 mg Documented by: Enoxaparin Sodium (Lovenox -) 40 mg SQ DAILY [facility] Last Admin: 10/28/19 10:06 Dose: 40 mg Documented by: Insulin Aspart (Novolog Vial [facility]iding Scale -) [facility]; Protocol Last Admin: 10/28/19 16:54 Dose: 4 unit Documented by: Metoprolol Tartrate (Lopressor -) 12.5 mg PO DAILY [facility] Last Admin: 10/28/19 10:06 Dose: 12.5 mg Documented by: Polyethylene Glycol (Miralax (For Daily Use) -) 17 gm PO BID [facility] Last Admin: 10/28/19 10:08 Dose: 17 g Documented by: Tramadol HCl (Ultram -) 50 mg PO Q6H PRN PRN Reason: PAIN LEVEL 6-10 Last Admin: 10/28/19 10:06 Dose: 50 mg Documented by: - Objective Vital Signs: Vital Signs Temperature 98.8 F 10/28/19 14:21 Pulse Rate 75 10/28/19 14:21 Respiratory Rate 18 10/28/19 14:21 Blood Pressure 113/44 L 10/28/19 14:21 O2 Sat by Pulse Oximetry (%) 96 10/28/19 14:21 Constitutional: Yes: Well Nourished, No Distress, Calm Cardiovascular: Yes: Regular Rate and Rhythm Respiratory: Yes: Regular, CTA Bilaterally Gastrointestinal: Yes: Normal Bowel Sounds, Soft Genitourinary: Yes: WNL Musculoskeletal: Yes: Muscle Weakness Extremities: Yes: WNL Edema: No Peripheral Pulses WNL: Yes Neurological: Yes: Alert, Oriented Psychiatric: Yes: Alert, Oriented Labs: CBC, BMP 10/28/19 07:35 10/28/19 07:35 INR, PTT INR 1.17 (0.82-1.09) 10/26/19 14:55 Problem List - Problems (1) Pubic ramus fracture Assessment/Plan: -Orthopedic consult appreciated -Physical therapy -SNF placement -Pain control: Acetaminophen 1000 mg po Q6H PRN for pain 1-5 Tramadol 50 mg PO Q6H prn for pain 6-10 Problems reviewed: Yes Code(s): S32.599A - OTH FRACTURE OF UNSP PUBIS, INIT ENCNTR FOR CLOSED FRACTURE (2) Diabetes Assessment/Plan: -BGM AC HS -Diabetic low sodium diet -ISS -Restart metformin 1000 mg po bid Problems reviewed: Yes Code(s): E11.9 - TYPE 2 DIABETES MELLITUS WITHOUT COMPLICATIONS Qualifiers: Diabetes mellitus type: type 2 Diabetes mellitus custodial insulin use: without qc scientist use Diabetes mellitus complication status: with unspecified complications (3) Fall from ground level Problems reviewed: Yes Code(s): W18.30XA - FALL ON SAME LEVEL, UNSPECIFIED, INITIAL ENCOUNTER (4) HTN (hypertension) Problems reviewed: Yes Code(s): I10 - ESSENTIAL (PRIMARY) HYPERTENSION Assessment/Plan See problem list
[2019-10-28] MEDS ORDERED: ACETAMINOPHEN 500 MG TABLET (FP) PO PRN (17:34)
[2019-10-28] MEDS: ATORVASTATIN CA 10 MG TABLET (FP) PO SCH (21:31)
[2019-10-29] MEDS: traMADol HCL 50 MG TABLET PO PRN ×2 (04:58→09:55)
[2019-10-29] MEDS: INSULIN SLIDING SCALE (NOVOLOG) 1 VIAL SQ SCH ×2 (06:36→17:20)
[2019-10-29] MEDS: metFORMIN HCL 500 MG TABLET (FP) PO SCH ×2 (06:37→17:20)
--- NOTE | 2019-10-29 08:23 | PN ---
Progress Note, Physician Chief Complaint: Fall Right superior and inferior pubic rami fx History of Present Illness: NAD Did poorly with PT Seen by orthopedic surgery - Current Medication List Current Medications: Active Medications Acetaminophen (Tylenol -) 1,000 mg PO Q6H PRN PRN Reason: PAIN LEVEL 1-5 OR FEVER > 100 Aspirin (Ecotrin -) 81 mg PO Q2D [facility] Last Admin: 10/28/19 10:06 Dose: 81 mg Documented by: Atorvastatin Calcium (Lipitor -) 10 mg PO HS [facility] Last Admin: 10/28/19 21:31 Dose: 10 mg Documented by: Enalapril Maleate (Vasotec -) 2.5 mg PO DAILY [facility] Last Admin: 10/28/19 10:08 Dose: 2.5 mg Documented by: Enoxaparin Sodium (Lovenox -) 40 mg SQ DAILY [facility] Last Admin: 10/28/19 10:06 Dose: 40 mg Documented by: Insulin Aspart (Novolog Vial Sliding Scale -) [facility]; Protocol Last Admin: 10/29/19 06:36 Dose: Not Given Documented by: Metformin HCl (Glucophage -) 1,000 mg PO BID@0700,1630 [facility] Last Admin: 10/29/19 06:37 Dose: 1,000 mg Documented by: Metoprolol Tartrate (Lopressor -) 12.5 mg PO DAILY [facility] Last Admin: 10/28/19 10:06 Dose: 12.5 mg Documented by: Polyethylene Glycol (Miralax (For Daily Use) -) 17 gm PO BID [facility] Last Admin: 10/28/19 21:31 Dose: 17 gm Documented by: Tramadol HCl (Ultram -) 50 mg PO Q6H PRN PRN Reason: PAIN LEVEL 6-10 Last Admin: 10/29/19 04:58 Dose: 50 mg Documented by: - Objective Vital Signs: Vital Signs Temperature 98.8 F 10/29/19 06:00 Pulse Rate 77 10/29/19 06:00 Respiratory Rate 18 10/29/19 06:00 Blood Pressure 122/72 10/29/19 06:00 O2 Sat by Pulse Oximetry (%) 95 10/29/19 08:14 Constitutional: Yes: Well Nourished, No Distress, Calm Cardiovascular: Yes: Regular Rate and Rhythm Respiratory: Yes: Regular, CTA Bilaterally Gastrointestinal: Yes: Normal Bowel Sounds, Soft Genitourinary: Yes: WNL Musculoskeletal: Yes: Muscle Weakness Extremities: Yes: WNL Edema: No Peripheral Pulses WNL: Yes Neurological: Yes: Alert, Oriented Psychiatric: Yes: Alert, Oriented Labs: CBC, BMP 10/28/19 07:35 10/28/19 07:35 INR, PTT INR 1.17 (0.82-1.09) 10/26/19 14:55 Problem List - Problems (1) Pubic ramus fracture Assessment/Plan: -Orthopedic consult appreciated -Physical therapy -SNF placement -Pain control: Acetaminophen 1000 mg po Q6H PRN for pain 1-5 Tramadol 50 mg PO Q6H prn for pain 6-10 Problems reviewed: Yes Code(s): S32.599A - OTH FRACTURE OF UNSP PUBIS, INIT ENCNTR FOR CLOSED FRACTURE (2) Diabetes Assessment/Plan: -BGM AC HS -Diabetic low sodium diet -ISS -Restart metformin 1000 mg po bid Problems reviewed: Yes Code(s): E11.9 - TYPE 2 DIABETES MELLITUS WITHOUT COMPLICATIONS Qualifiers: Diabetes mellitus type: type 2 Diabetes mellitus laborer marine terminal insulin use: without [facility] use Diabetes mellitus complication status: with unspecified complications (3) Fall from ground level Problems reviewed: Yes Code(s): W18.30XA - FALL ON SAME LEVEL, UNSPECIFIED, INITIAL ENCOUNTER (4) HTN (hypertension) Problems reviewed: Yes Code(s): I10 - ESSENTIAL (PRIMARY) HYPERTENSION Assessment/Plan See problem list SNF placement in AM
[2019-10-29] MEDS: METOPROLOL TARTRATE 25 MG TABLET (FP) PO SCH (09:42)
[2019-10-29] MEDS: ENOXAPARIN NA (PORCINE) 40 MG/0.4 ML DISP.SYRIN SQ SCH (09:43)
[2019-10-29] MEDS: POLYETHYLENE GLYCOL 3350 119 GM BTL PO SCH ×2 (09:43→21:09)
[2019-10-29] MEDS: ENALAPRIL MALEATE 2.5 MG TABLET (FP) PO SCH (09:43)
[2019-10-29] MEDS ORDERED: ONDANSETRON 4 MG/2 ML VIAL IVPUSH PRN (12:43)
[2019-10-29] MEDS: NYSTATIN POWDER 100,000 UNITS/GM - 15 GM TOPICAL POWDER TP SCH ×2 (14:10→21:09)
[2019-10-29] MEDS: ATORVASTATIN CA 10 MG TABLET (FP) PO SCH (21:09)
[2019-10-29] MEDS ORDERED: SENNOSIDES 8.6MG TABLET (FP) PO PRN (21:46)
[2019-10-30] MEDS: traMADol HCL 50 MG TABLET PO PRN (04:29)
[2019-10-30] MEDS: INSULIN SLIDING SCALE (NOVOLOG) 1 VIAL SQ SCH ×2 (06:28→17:24)
[2019-10-30] MEDS: metFORMIN HCL 500 MG TABLET (FP) PO SCH ×2 (06:32→17:24)
[2019-10-30] MEDS: ASPIRIN COATED 81 MG TABLET.EC PO SCH (09:44)
[2019-10-30] MEDS: METOPROLOL TARTRATE 25 MG TABLET (FP) PO SCH (09:44)
[2019-10-30] MEDS: ENOXAPARIN NA (PORCINE) 40 MG/0.4 ML DISP.SYRIN SQ SCH (09:45)
[2019-10-30] MEDS ORDERED: SODIUM CHLORIDE 500 ML IV STA (09:46)
--- NOTE | 2019-10-30 09:46 | HOSP ---
Physical Examination Vital Signs: Vital Signs Temperature 99.7 F H 10/30/19 09:36 Pulse Rate 80 10/30/19 09:36 Respiratory Rate 18 10/30/19 09:36 Blood Pressure 139/50 L 10/30/19 09:36 O2 Sat by Pulse Oximetry (%) 96 10/30/19 09:36 Labs: CBC, BMP 10/28/19 07:35 10/28/19 07:35 Hospitalist Encounter Assessment: Called to bedside by RN. Patient complaining of dizziness, sweating after walking with PT. Denies headache, chest pain. V/s: BP 139/50, HR 86, RR 20, SpO2 98%, T 99.7. FSB EKG: NSR at 75bpm, no ST or T wave changes Trop sent. Will give 500mL NS bolus, hold anti-hypertensives for now. Pt reports no BM x 7 days - Mg citrate ordered. Dr. Owens notified - will see patient today.
[2019-10-30] MEDS: POLYETHYLENE GLYCOL 3350 119 GM BTL PO SCH ×2 (09:53→21:59)
[2019-10-30] MEDS: ENALAPRIL MALEATE 2.5 MG TABLET (FP) PO SCH (09:53)
[2019-10-30] MEDS: NYSTATIN POWDER 100,000 UNITS/GM - 15 GM TOPICAL POWDER TP SCH ×2 (09:53→21:59)
[2019-10-30] MEDS ORDERED: MAGNESIUM CITRATE 300 ML BOTTLE PO ONE (10:27)
--- NOTE | 2019-10-30 16:02 | EKG ---
Test Reason : Blood Pressure : / mmHG Vent. Rate : 075 BPM Atrial Rate : 075 BPM P-R Int : 164 ms QRS Dur : 078 ms QT Int : 362 ms P-R-T Axes : 050 -26 037 degrees QTc Int : 404 ms NORMAL SINUS RHYTHM NORMAL ECG WHEN COMPARED WITH ECG OF 26-OCT-2019 14:35, NO SIGNIFICANT CHANGE WAS FOUND Confirmed by COLIN MURPHY MD ([id number]) on 10/30/2019 4:01:40 PM Referred By: DALTON Confirmed By:COLIN MURPHY MD
--- NOTE | 2019-10-30 17:19 | PN ---
Progress Note, Physician - Current Medication List Current Medications: Active Medications Acetaminophen (Tylenol -) 1,000 mg PO Q6H PRN PRN Reason: PAIN LEVEL 1-5 OR FEVER > 100 Last Admin: 10/29/19 09:56 Dose: 1,000 mg Documented by: Aspirin (Ecotrin -) 81 mg PO Q2D [facility] Last Admin: 10/30/19 09:44 Dose: 81 mg Documented by: Atorvastatin Calcium (Lipitor -) 10 mg PO HS [facility] Last Admin: 10/29/19 21:09 Dose: 10 mg Documented by: Enalapril Maleate (Vasotec -) 2.5 mg PO DAILY [facility] Last Admin: 10/30/19 09:53 Dose: Not Given Documented by: Enoxaparin Sodium (Lovenox -) 40 mg SQ DAILY [facility] Last Admin: 10/30/19 09:45 Dose: 40 mg Documented by: Insulin Aspart (Novolog Vial Sliding Scale -) [facility]; Protocol Last Admin: 10/30/19 06:28 Dose: Not Given Documented by: Metformin HCl (Glucophage -) 1,000 mg PO BID@0700,1630 [facility] Last Admin: 10/30/19 06:32 Dose: 1,000 mg Documented by: Metoprolol Tartrate (Lopressor -) 12.5 mg PO DAILY [facility] Last Admin: 10/30/19 09:44 Dose: Not Given Documented by: Nystatin (Nystop Powder -) 1 applic TP BID [facility] Last Admin: 10/30/19 09:53 Dose: 1 applic Documented by: Ondansetron HCl (Zofran Injection) 4 mg IVPUSH Q6H PRN PRN Reason: NAUSEA AND/OR VOMITING Polyethylene Glycol (Miralax (For Daily Use) -) 17 gm PO BID [facility] Last Admin: 10/30/19 09:53 Dose: 17 gm Documented by: Senna (Senna -) 2 tab PO HS PRN PRN Reason: CONSTIPATION Last Admin: 10/29/19 22:24 Dose: 2 tab Documented by: Tramadol HCl (Ultram -) 50 mg PO Q6H PRN PRN Reason: PAIN LEVEL 6-10 Last Admin: 10/30/19 04:29 Dose: 50 mg Documented by: - Objective Vital Signs: Vital Signs Temperature 98.6 F 10/30/19 14:10 Pulse Rate 69 10/30/19 14:10 Respiratory Rate 18 10/30/19 14:10 Blood Pressure 110/44 L 10/30/19 14:10 O2 Sat by Pulse Oximetry (%) 97 10/30/19 14:10 Cardiovascular: Yes: Regular Rate and Rhythm Respiratory: Yes: Regular, CTA Bilaterally Gastrointestinal: Yes: Normal Bowel Sounds, Soft Labs: CBC, BMP 10/28/19 07:35 10/28/19 07:35 INR, PTT INR 1.17 (0.82-1.09) 10/26/19 14:55 Problem List - Problems (1) Fracture of superior pubic ramus Assessment/Plan: c/w pain control with IV Ofirmev 1000mg q6hr prn ADD TRAMADOL Orthopedics- Dr. Page consult noted--no surgery -Orthopedic consult appreciated -Physical therapy -SNF placement -Pain control: Acetaminophen 1000 mg po Q6H PRN for pain 1-5 Tramadol 50 mg PO Q6H prn for pain 6-10 Code(s): S32.519A - FRACTURE OF SUPERIOR RIM OF UNSP PUBIS, INIT FOR CLOS FX Qualifiers: Encounter type: initial encounter Fracture type: closed Laterality: right Qualified Code(s): S32.511A - Fracture of superior rim of right pubis, initial encounter for closed fracture (2) HTN (hypertension) Assessment/Plan: same meds Code(s): I10 - ESSENTIAL (PRIMARY) HYPERTENSION (3) Constipation Assessment/Plan: miralax Code(s): K59.00 - CONSTIPATION, UNSPECIFIED (4) Diabetes Assessment/Plan: -BGM AC HS -Diabetic low sodium diet -ISS -Restart metformin 1000 mg po bid Code(s): E11.9 - TYPE 2 DIABETES MELLITUS WITHOUT COMPLICATIONS Qualifiers: Diabetes mellitus type: type 2 Diabetes mellitus fci insulin use: without long term care phlebotomist use Diabetes mellitus complication status: with unspecified complications (5) Near syncope Assessment/Plan: may have been vasovagal trop neg labs monitor Code(s): R55 - SYNCOPE AND COLLAPSE
[2019-10-30] MEDS: ATORVASTATIN CA 10 MG TABLET (FP) PO SCH (21:59)
[2019-10-31] MEDS: INSULIN SLIDING SCALE (NOVOLOG) 1 VIAL SQ SCH (06:50)
[2019-10-31] MEDS: metFORMIN HCL 500 MG TABLET (FP) PO SCH (06:52)
--- NOTE | 2019-10-31 08:21 | DS ---
Physical Examination Vital Signs: Vital Signs Temperature 98.3 F 10/31/19 06:52 Pulse Rate 70 10/31/19 06:52 Respiratory Rate 18 10/31/19 06:52 Blood Pressure 151/44 L 10/31/19 06:52 O2 Sat by Pulse Oximetry (%) 95 10/31/19 06:52 Labs: CBC, BMP 10/28/19 07:35 10/28/19 07:35 Discharge Summary Problems reviewed: Yes Reason For Visit: FRACTURE OF SUPERIOR RAMUS OF PUBIS Current Active Problems Constipation (Acute) Fall from ground level (Acute) Fracture of superior pubic ramus (Acute) HTN (hypertension) (Acute) Near syncope (Acute) Pubic ramus fracture (Acute) Hospital Course: - Problems (1) Fracture of superior pubic ramus Assessment/Plan: c/w pain control with IV Ofirmev 1000mg q6hr prn ADD TRAMADOL Orthopedics- Dr. Page consult noted--no surgery -Orthopedic consult appreciated -Physical therapy -SNF placement -Pain control: Acetaminophen 1000 mg po Q6H PRN for pain 1-5 Tramadol 50 mg PO Q6H prn for pain 6-10 Code(s): S32.519A - FRACTURE OF SUPERIOR RIM OF UNSP PUBIS, INIT FOR CLOS FX Qualifiers: Encounter type: initial encounter Fracture type: closed Laterality: right Qualified Code(s): S32.511A - Fracture of superior rim of right pubis, initial encounter for closed fracture (2) HTN (hypertension) Assessment/Plan: same meds Code(s): I10 - ESSENTIAL (PRIMARY) HYPERTENSION (3) Constipation Assessment/Plan: miralax Code(s): K59.00 - CONSTIPATION, UNSPECIFIED (4) Diabetes Assessment/Plan: -BGM AC HS -Diabetic low sodium diet -ISS -Restart metformin 1000 mg po bid Code(s): E11.9 - TYPE 2 DIABETES MELLITUS WITHOUT COMPLICATIONS Qualifiers: Diabetes mellitus type: type 2 Diabetes mellitus shelter insulin use: wit elly shelter use Diabetes mellitus complication status: with unspecified complications (5) Near syncope Assessment/Plan: resolved may have been vasovagal trop neg labs monitor Code(s): R55 - SYNCOPE AND COLLAPSE Condition: Guarded - Instructions Referrals: Sena Owens MD [Primary Care Provider] - - Home Medications Comprehensive Discharge Medication List: Ambulatory Orders Enalapril Maleate [Vasotec -] 2.5 mg PO DAILY 06/29/12 metFORMIN HCL [Glucophage] 1,000 mg PO BID 06/29/12 Aspirin Coated [Ecotrin -] 81 mg PO Q2D 08/22/14 Metoprolol Tartrate [Lopressor -] 12.5 mg PO DAILY 08/22/14 Atorvastatin Ca [Lipitor] 10 mg PO DAILY 08/01/18 Acetaminophen [Tylenol .Extra-Strength -] 1,000 mg PO Q6H PRN tablet 10/31/19 Enoxaparin [Lovenox -] 40 mg SQ DAILY disp.syrin 10/31/19 Insulin Sliding Scale [Novolog Vial Sliding Scale -] 1 vial SQ BIDAC units 10/31/19 Nystatin Powder [Nystop Powder -] 1 applic TP BID applic 10/31/19 Polyethylene Glycol 3350 [Miralax 119 gm Btl -] 17 gm PO BID bottle 10/31/19 Sennosides [Senna -] 2 tab PO HS PRN tablet 10/31/19 traMADol HCL [Ultram -] 50 mg PO Q6H PRN tablet 10/31/19
[2019-10-31 08:40] LABS: ALBUMIN 3.1 g/dl (3.4-5.0); CALCIUM 8.8 mg/dl (8.5-10); CREATININE 0.7 mg/dl (0.55-1.3); POTASSIUM 4.1 mmol/L (3.5-5.1); TOT PROT 6.1 g/dl (6.4-8.2)
[2019-10-31 08:41] LABS: BASO % 0.6 % (0-2.0); HEMATOCRIT 30.8 % (32.4-45.2); HEMOGLOBIN 10.4 GM/dl (10.7-15.3); LYMPH % 22.2 % (8-40); MCH 31.1 pg (25.7-33.7); MCHC 33.9 g/dl (32.0-36.0); MEAN CELL VOLUME 91.7 fl (80-96); MEAN PLT VOLUME 8.7 fl (7.5-11.1); MONO % 7.3 % (3.8-10.2); NEUT % 66.9 % (42.8-82.8); PLATELET COUNT 300 K/MM3 (134-434); RBC 3.36 M/mm3 (3.60-5.2); RDW 11.8 % (11.6-15.6); WHITE BLOOD COUNT 10.3 K/mm3 (4.0-10.8)
[2019-10-31] MEDS: METOPROLOL TARTRATE 25 MG TABLET (FP) PO SCH (09:18)
[2019-10-31] MEDS: ENALAPRIL MALEATE 2.5 MG TABLET (FP) PO SCH (09:18)
[2019-10-31] MEDS: NYSTATIN POWDER 100,000 UNITS/GM - 15 GM TOPICAL POWDER TP SCH (09:20)
[2019-10-31] MEDS: ENOXAPARIN NA (PORCINE) 40 MG/0.4 ML DISP.SYRIN SQ SCH (09:21)
[2019-10-31] MEDS: POLYETHYLENE GLYCOL 3350 119 GM BTL PO SCH (09:21)
--- NOTE | 2019-10-31 11:20 | PN ---
Progress Note (short form) - Note Progress Note: Ortho Pt seen and examined s/p right sup and inf pubic rami fx Selected Entries 10/31/19 09:29 Temperature 98.5 F Pulse Rate 75 Respiratory 18 Rate Blood Pressure 123/57 L equal limb lengths, decr pain, incr rom nvi a/p PT wbat dvt ppx pain control d/c planning
[2019-10-31 13:56] VITALS: BP 112/59; PULSE 68; TEMP 98.2
== END 2019-10-31 15:36 | DRG 536 ==
LOC: SUPCPDRO 14:27 → FER 14:27 → FM/S 17:35
PROVIDERS: ADMIT Internal Medicine; ATTEND Family Medicine
DX: S32.511A Fracture of superior rim of right pubis, initial encounter for closed fracture (principal); E11.9 Type 2 diabetes mellitus without complications; I10 Essential (primary) hypertension; E78.5 Hyperlipidemia, unspecified; E83.42 Hypomagnesemia; K59.00 Constipation, unspecified; R55 Syncope and collapse; D72.829 Elevated white blood cell count, unspecified; W19.XXXA Unspecified fall, initial encounter; Y93.9 Activity, unspecified; Y92.89 Other specified places as the place of occurrence of the external cause; Y99.9 Unspecified external cause status
CPT/HCPCS: 36415; 71045-TC-FY; 73523-TC-FY; 73560-TC-RT-FY; 80048; 80053; 81003; 81015; 82728; 82962; 83540; 83550; 83735; 84484; 85025; 85027; 85610; 85730; 86850; 86900; 86901; 87086; 93005; 97116-GP; 97162-GP; 99285-25; J0131; U0003